=== PATIENT | female | born 1975 | race Caucasian/White ===

== ENCOUNTER 2017-03-09 15:30 | Emergency (ER) | payer OTHER ==
[2017-03-09 15:42] VITALS: BMI 51.7
--- NOTE | 2017-03-09 15:43 | PDOC ---
Rapid Medical Evaluation Time Seen by Provider: 03/09/17 15:37 Medical Evaluation: Allergies Allergy/AdvReac Type Severity Reaction Status Date / Time ampicillin Allergy Mild Hives Verified 07/10/13 14:42 I have performed a brief in-person evaluation of this patient. The patient presents with a chief complaint of: bilateral leg pain from knee down x 5 days, worse on right side with swelling. no recent travel. no smoking history. Pertinent physical exam findings: TTP of b/l calves, R>L. No pitting edema. No erythema, warmth, or streaking to affected extremities I have ordered the following: hcg, UA The patient will proceed to the ED for further evaluation.
[2017-03-09 16:16] LABS: URINE APPEARANCE CLEAR; URINE BILIRUBIN NEGATIVE (NEGATIVE); URINE BLOOD NEGATIVE (NEGATIVE); URINE COLOR LTYELLOW; URINE GLUCOSE (UA) NEGATIVE (NEGATIVE); URINE KETONE NEGATIVE (NEGATIVE); URINE NITRITE NEGATIVE (NEGATIVE); URINE PROTEIN NEGATIVE (NEGATIVE); URINE UROBILINOGEN NEGATIVE E.U./dl (0.2-1.0)
[2017-03-09 16:53] LABS: URINE LEUK ESTERASE 3+ (NEGATIVE)
[2017-03-09 17:11] LABS: URINE BACTERIA RARE /hpf (NONE SEEN); URINE MUCUS RARE; URINE RBC 7 /hpf (0-3); URINE WBC 4 /hpf (3-5)
[2017-03-09] MEDS ORDERED: OXYCODONE/APAP 5/325MG COMBO TABLET PO ONE (17:14)
[2017-03-09] MEDS ORDERED: OXYCODONE/APAP 5/325MG COMBO TABLET ONE (17:23)
[2017-03-09 17:33] LABS: BASOPHIL 0.6 % (0-2.0); EOSINOPHIL 3.3 % (0-4.5); MEAN CELL VOLUME 84.4 fl (80-96); MEAN PLT VOLUME 8.7 fl (7.5-11.1); NEUTROPHILS 62.3 % (42.8-82.8); PLATELET COUNT 132 K/MM3 (134-434); RDW 13.4 % (11.6-15.6); WHITE BLOOD COUNT 5.8 K/mm3 (4.0-10.0)
--- NOTE | 2017-03-09 17:48 | PDOC ---
*Physical Exam - Vital Signs Last Vital Signs Temp Pulse Resp BP Pulse Ox 99 F 96 H 18 113/71 99 03/09/17 15:37 03/09/17 15:37 03/09/17 15:37 03/09/17 15:37 03/09/17 15:37 ED Treatment Course - LABORATORY CBC & Chemistry Diagram: 03/09/17 17:26 03/09/17 17:26 - ADDITIONAL ORDERS Additional order review: Laboratory Results 03/09/17 15:43 Urine Color Ltyellow Urine Appearance Clear Urine pH 5.0 Urine Protein Negative Urine Glucose (UA) Negative Urine Ketones Negative Urine Blood Negative Urine Nitrite Negative Urine Bilirubin Negative Urine Urobilinogen Negative Ur Leukocyte Esterase 3+ H Urine RBC 7 Urine WBC 4 Ur Epithelial Cells Few Urine Bacteria Rare Urine Mucus Rare Urine HCG, Qual Negative 03/09/17 17:26 RBC 4.46 MCV 84.4 MCHC 32.0 RDW 13.4 MPV 8.7 Neutrophils % 62.3 Lymphocytes % 28.9 Monocytes % 4.9 Eosinophils % 3.3 Basophils % 0.6 - Medications Given in the ED: ED Medications Discontinued Medications Generic Name Dose Route Start Last Admin Trade Name Freq PRN Reason Stop Dose Admin Oxycodone/Acetaminophen 1 combo 03/09/17 17:14 03/09/17 17:21 Percocet 5/325 - PO 03/09/17 17:15 1 combo ONCE ONE Administration Medical Decision Making - Medical Decision Making 03/11/17 11:28 Pt seen by Midlevel Provider under my direct supervision Ancillary studies reviewed I agree with plan as outlined by Midlevel Provider *DC/Admit/Observation/Transfer Diagnosis at time of Disposition: Right leg pain, UTI (urinary tract infection) - Discharge Dispostion Disposition: HOME Condition at time of disposition: Stable - Prescriptions Prescriptions: Nitrofurantoin Monohyd/M-Cryst [Macrobid -] 100 mg PO BID #14 capsule - Referrals Referrals: Jose Frazier MD [Staff Physician] - Chilo Donaldson MD [Staff Physician] - Caleb Thorne [Primary Care Provider] - - Patient Instructions Printed Discharge Instructions: DI for Leg Pain Additional Instructions: Follow up with your physician Return to the ER for severe/persistent/worsening symptoms
[2017-03-09 18:03] LABS: ALBUMIN 3.3 g/dl (3.4-5.0); ALK PHOS 54 U/L (45-117); ANION GAP 7 (8-16); BILIRUBIN,TOTAL 0.3 mg/dL (0.2-1.0); CALCIUM 8.9 mg/dL (8.5-10.1); CO2 29 mmol/L (21-32); COCKROFT - GAULT 202.7165; CREATININE 0.7 mg/dL (0.55-1.02); GLUCOSE,RANDOM 121 mg/dL (74-106); SGOT/AST 19 U/L (15-37); SGPT/ALT 36 U/L (12-78); TOT PROT 6.9 g/dl (6.4-8.2)
--- NOTE | 2017-03-09 18:20 | PDOC ---
History of Present Illness - General Chief Complaint: Pain Stated Complaint: LEG PAIN Time Seen by Provider: 03/09/17 15:37 History Source: Patient Exam Limitations: No Limitations - History of Present Illness Initial Comments: 03/09/17 16:15 42-year-old obese female presents to the ED with complaints of generalized right leg pain worsened with movement and ambulation since last week. Patient states has been taking Motrin with minimal to moderate effect. Patient states history of appendectomy unsure of this relates to her back versus anemia issues since she states has chronic knee pain also. Patient denies shortness of breath palpitations, chest pain, weakness, dizziness, or lower extremity edema. Patient does state pain is worse to the right calf which radiates to her right hamstring. Timing/Duration: getting worse, intermittent Severity: moderate Associated Symptoms: reports: denies symptoms Past History - Past Medical History Allergies/Adverse Reactions: Allergies Allergy/AdvReac Type Severity Reaction Status Date / Time ampicillin Allergy Mild Hives Verified 03/09/17 15:42 Home Medications: Ambulatory Orders Hydroxyzine Pamoate [Vistaril -] 50 mg PO DAILY 03/09/17 Nitrofurantoin Monohyd/M-Cryst [Macrobid -] 100 mg PO BID #14 capsule 03/09/17 Asthma: No Psychiatric Problems: Yes (ANXIETY, BIPOLAR) - Psycho/Social/Smoking Cessation Hx Anxiety: Yes Suicidal Ideation: No Smoking History: Former smoker Have you smoked in the past 12 months: Yes Number of Cigarettes Smoked Daily: 10 Information on smoking cessation initiated: No 'Breaking Loose' booklet given: 05/30/13 Hx Alcohol Use: Yes (one beer per month) Drug/Substance Use Hx: Yes (none since 2008) Substance Use Type: Cocaine, Marijuana Hx Substance Use Treatment: Yes Patient Lives Alone: Yes Review of Systems - Review of Systems Able to Perform ROS?: Yes Constitutional: No: Symptoms Reported HEENTM: No: Symptoms Reported Respiratory: No: Symptoms reported Cardiac (ROS): No: Symptoms Reported ABD/GI: No: Symptoms Reported : No: Symptoms Reported Musculoskeletal: Yes: Joint Pain (right knee), Muscle Pain (right calf right hamstring) Integumentary: No: Symptoms Reported Neurological: No: Symptoms reported *Physical Exam - Vital Signs Last Vital Signs Temp Pulse Resp BP Pulse Ox 99 F 96 H 18 113/71 99 03/09/17 15:37 03/09/17 15:37 03/09/17 15:37 03/09/17 15:37 03/09/17 15:37 - Physical Exam General Appearance: Yes: Nourished, Appropriately Dressed. No: Apparent Distress HEENT: negative: Pale Conjunctivae Respiratory/Chest: positive: Lungs Clear, Normal Breath Sounds. negative: Respiratory Distress, Accessory Muscle Use Cardiovascular: positive: Regular Rhythm, Regular Rate. negative: Murmur Gastrointestinal/Abdominal: positive: Soft. negative: Tenderness Extremity: positive: Normal Capillary Refill, Normal Inspection, Normal Range of Motion, Tender (right calf and right hamstring), Calf Tenderness. negative: Pedal Edema, Swelling Integumentary: positive: Normal Color, Warm, Moist Neurologic: positive: Motor Strength 5/5 (ambulatory) ED Treatment Course - LABORATORY CBC & Chemistry Diagram: 03/09/17 17:26 03/09/17 17:26 - ADDITIONAL ORDERS Additional order review: Laboratory Results 03/09/17 03/09/17 17:26 15:43 Sodium 142 Potassium 3.9 Chloride 106 Carbon Dioxide 29 Anion Gap 7 L BUN 14 Creatinine 0.7 D Creat Clearance w eGFR > 60 Random Glucose 121 H D Calcium 8.9 Magnesium 2.0 Total Bilirubin 0.3 D AST 19 D ALT 36 D Alkaline Phosphatase 54 Total Protein 6.9 Albumin 3.3 L Urine Color Ltyellow Urine Appearance Clear Urine pH 5.0 Urine Protein Negative Urine Glucose (UA) Negative Urine Ketones Negative Urine Blood Negative Urine Nitrite Negative Urine Bilirubin Negative Urine Urobilinogen Negative Ur Leukocyte Esterase 3+ H Urine RBC 7 Urine WBC 4 Ur Epithelial Cells Few Urine Bacteria Rare Urine Mucus Rare Urine HCG, Qual Negative 03/09/17 17:26 RBC 4.46 MCV 84.4 MCHC 32.0 RDW 13.4 MPV 8.7 Neutrophils % 62.3 Lymphocytes % 28.9 Monocytes % 4.9 Eosinophils % 3.3 Basophils % 0.6 - RADIOLOGY Radiology Studies Ordered: Category Date Time Status DUPLEX VASCUL US-1 LEG [US] Stat Ultrasound 03/09/17 17:05 Ordered - Medications Given in the ED: ED Medications Discontinued Medications Generic Name Dose Route Start Last Admin Trade Name Freq PRN Reason Stop Dose Admin Oxycodone/Acetaminophen 1 combo 03/09/17 17:14 03/09/17 17:21 Percocet 5/325 - PO 03/09/17 17:15 1 combo ONCE ONE Administration Medical Decision Making - Medical Decision Making 03/09/17 18:20 patient with right lower extremity pain causing her difficulty with ambulation or movement. Patient exam had calf tenderness along with hamstring tenderness and generalized right patellar discomfort. Patient had no decreased range of motion, swelling, decreased temperature, or decreased pulses. Patient was ordered for labs one Percocet and DVT study *DC/Admit/Observation/Transfer Diagnosis at time of Disposition: Right leg pain, UTI (urinary tract infection) - Discharge Dispostion Disposition: HOME Condition at time of disposition: Stable - Prescriptions Prescriptions: Nitrofurantoin Monohyd/M-Cryst [Macrobid -] 100 mg PO BID #14 capsule - Referrals Referrals: Jose Frazier MD [Staff Physician] - Chilo Donaldson MD [Staff Physician] - Caleb Thorne [Primary Care Provider] - - Patient Instructions Printed Discharge Instructions: DI for Leg Pain Additional Instructions: Follow up with your physician Return to the ER for severe/persistent/worsening symptoms
--- NOTE | 2017-03-09 19:42 | PDOC ---
*Physical Exam - Vital Signs Last Vital Signs Temp Pulse Resp BP Pulse Ox 99 F 96 H 18 113/71 99 03/09/17 15:37 03/09/17 15:37 03/09/17 15:37 03/09/17 15:37 03/09/17 15:37 - Physical Exam Comments: 03/09/17 19:46 42-year-old morbidly obese female presents to the emergency department complaining of right leg pain. Pain is described as 6/10 dull nonradiating intermittent discomfort. The pain is exacerbated on movement and when ambulating 6 days. The pain is alleviated minimally with ibuprofen. Patient denies chest pain, shortness of breath, extremity numbness or tingling sensation. Patient also complains of urinary frequency and urgency without fever, chills, nausea/vomiting, burning upon urination, hematuria. ED Treatment Course - LABORATORY CBC & Chemistry Diagram: 03/09/17 17:26 03/09/17 17:26 - ADDITIONAL ORDERS Additional order review: Laboratory Results 03/09/17 03/09/17 17:26 15:43 Sodium 142 Potassium 3.9 Chloride 106 Carbon Dioxide 29 Anion Gap 7 L BUN 14 Creatinine 0.7 D Creat Clearance w eGFR > 60 Random Glucose 121 H D Calcium 8.9 Magnesium 2.0 Total Bilirubin 0.3 D AST 19 D ALT 36 D Alkaline Phosphatase 54 Total Protein 6.9 Albumin 3.3 L Urine Color Ltyellow Urine Appearance Clear Urine pH 5.0 Urine Protein Negative Urine Glucose (UA) Negative Urine Ketones Negative Urine Blood Negative Urine Nitrite Negative Urine Bilirubin Negative Urine Urobilinogen Negative Ur Leukocyte Esterase 3+ H Urine RBC 7 Urine WBC 4 Ur Epithelial Cells Few Urine Bacteria Rare Urine Mucus Rare Urine HCG, Qual Negative 03/09/17 17:26 RBC 4.46 MCV 84.4 MCHC 32.0 RDW 13.4 MPV 8.7 Neutrophils % 62.3 Lymphocytes % 28.9 Monocytes % 4.9 Eosinophils % 3.3 Basophils % 0.6 - Medications Given in the ED: ED Medications Discontinued Medications Generic Name Dose Route Start Last Admin Trade Name Freq PRN Reason Stop Dose Admin Oxycodone/Acetaminophen 1 combo 03/09/17 17:14 03/09/17 17:21 Percocet 5/325 - PO 03/09/17 17:15 1 combo ONCE ONE Administration Progress Note - Progress Note Progress Note: Patient had a duplex vascular study to the right leg. Preliminary report shows there is no evidence of DVT in the right lower extremity. Report was explained to the patient. *DC/Admit/Observation/Transfer Diagnosis at time of Disposition: Right leg pain UTI (urinary tract infection) Qualifiers: Urinary tract infection type: acute cystitis Hematuria presence: without hematuria Qualified Code(s): N30.00 - Acute cystitis without hematuria - Discharge Dispostion Disposition: HOME Condition at time of disposition: Stable Admit: No - Prescriptions Prescriptions: Nitrofurantoin Monohyd/M-Cryst [Macrobid -] 100 mg PO BID #14 capsule - Referrals Referrals: Jose Frazier MD [Staff Physician] - Caleb Thorne [Primary Care Provider] - Chilo Donaldson MD [Staff Physician] - - Patient Instructions Printed Discharge Instructions: DI for Leg Pain Additional Instructions: Follow up with your physician Return to the ER for severe/persistent/worsening symptoms
[2017-03-09 20:24] VITALS: BP 114/72; PULSE 84; TEMP 98.4
== END 2017-03-09 20:10 | disposition home or self-care (01) ==
LOC: JER 15:30
DX: N30.00 Acute cystitis without hematuria (principal); F41.9 Anxiety disorder, unspecified; F31.9 Bipolar disorder, unspecified
CPT/HCPCS: 36415; 80053; 81003; 81015; 83735; 84703; 85025; 93971-TC; 99282-25